=== PATIENT | female | born 1990 | race Caucasian/White ===

== ENCOUNTER 2020-01-07 13:54 | Outpatient (REF) | payer OTHER, SELFPAY ==
[2020-01-07 13:21] LABS: Anion Gap 6.3 mmol/L (3-11); BUN 13 mg/dL (7-18); CO2 31.7 mmol/L (21.0-32.0); Calcium 8.6 mg/dL (8.5-10.1); Calculated LDL 71 mg/dL (<100); Chloride 104 mmol/L (98-107); Cholesterol 144 mg/dL (<200); Glucose 81 mg/dL (74-106); HDL Cholesterol 46 mg/dL (40-60); Potassium 4.2 mmol/L (3.5-5.1); Sodium 142 mmol/L (136-145); Triglyceride 138 mg/dL (<150)
[2020-01-08 11:13] LABS: HIV-1/2 Ag & Ab Screen Negative (Negative)
[2020-01-08 11:42] LABS: Syphilis Serology (RPR) Negative (Negative)
[2020-01-08 12:55] LABS: Chlamydia Result Negative (Negative); GC Result Negative (Negative)
== END 2020-01-07 14:14 ==
LOC: NCHCN 13:54
PROVIDERS: Visit Provider Specialist/Technologist Athletic Trainer
DX: Z00.00 Encounter for general adult medical examination without abnormal findings (principal); Z13.220 Encounter for screening for lipoid disorders; Z13.228 Encounter for screening for other metabolic disorders; Z11.4 Encounter for screening for human immunodeficiency virus [HIV]; Z11.3 Encounter for screening for infections with a predominantly sexual mode of transmission
CPT/HCPCS: 80048; 80061; 87389; 87491; 87591; 86592

== ENCOUNTER 2021-04-21 13:30 | Outpatient (REF) | payer OTHER, SELFPAY ==
--- NOTE | 2021-04-21 12:15 | PAPFT_PTH ---
PATIENT: Tena Curran LOC: [facility] U#:[id number] AGE/SX: 31/F ROOM: RE04/21/[address]: Cordelia Vazquez : 1990 BED: DIS: 04/21/2021 SPEC #: [id number] RECD: 04/22/21 13:09 STATUS: DARWIN REFabian #: [id number] CR: 04/21/21 12:[address]: Cordelia Vazquez [facility]PT[facility] Cytology RECD BY: Lizeth Wise ENTERED: 04/22/21 13:09 SP TYPE: PAPFT ROBERTO DR: Unknown,Unknown Tissues: 1 - CX/ENDOCX FOR PAP SMEARS Procedures: PAP THIN PREP/[facility] Screening HPV DNA PROBE Comments: [id number]
[2021-04-21 21:54] LABS: Abs Immature Grans 0.01 10^3/uL (0.0-0.06); Absolute Basophil Count 0.04 10^3/uL (0.0-0.2); Absolute Eosinophil Count 0.09 10^3/uL (0.0-0.7); Absolute Lymphocyte Count 1.72 10^3/uL (1.2-3.4); Absolute Monocyte Count 0.43 10^3/uL (0.1-0.8); Absolute Neutrophil Count 4.68 10^3/uL (1.2-6.7); Basophils % 0.6; Eosinophils % 1.3; HCT 42.9 % (36.0-46.0); HGB 14.2 g/dL (11.2-15.7); Immature Grans % 0.1; Lymphocytes % 24.7; MCH 32.3 pg (27.0-33.0); MCHC 33.1 % (32.0-36.0); MCV 97.7 fL (80-95); MPV 11.1 fL (8.0-11.0); Monocytes % 6.2; Neutrophils % 67.1; Nucleated RBC 0 %; Platelet Count 241 10^3/uL (130-400); RBC 4.39 10^6/uL (3.93-5.22); RDW 12.5 % (11.7-14.6); WBC 6.97 10^3/uL (4.4-10.8)
[2021-04-21 21:56] LABS: ESR 1 mm/hr (0-20)
[2021-04-21 22:12] LABS: ALT 20 U/L (14-59); AST 12 U/L (15-37); Albumin 4.2 g/dL (3.4-5.0); Alkaline Phosphatase 36 U/L (46-116); Anion Gap 7.7 mmol/L (3-11); BUN 13 mg/dL (7-18); Bilirubin, Total 0.5 mg/dL (0.2-1.0); CO2 28.3 mmol/L (21.0-32.0); CREATININE 0.7 mg/dL (0.55-1.02); Calcium 9.1 mg/dL (8.5-10.1); Chloride 105 mmol/L (98-107); Glucose 84 mg/dL (74-106); Potassium 3.7 mmol/L (3.5-5.1); Sodium 141 mmol/L (136-145); TSH (W/Ref FT4) 0.42 uIU/mL (0.36-3.74); Total Protein 7.1 g/dL (6.4-8.2)
[2021-04-21 22:25] LABS: C-Reactive Protein 0.11 mg/dL (0.0-0.3)
[2021-04-21 22:28] LABS: Iron 92 ug/dL (50-170); Total Iron Binding Capacity 340 ug/dL (250-450); Transferrin Sat 27 % (15-50)
[2021-04-22 16:18] LABS: Rheumatoid Factor <8.6 IU/mL (<12.0)
[2021-04-23 09:24] LABS: Cyclic Citrullinated Peptide <2.5 U/mL (<5.0)
[2021-04-23 15:08] LABS: ANA Interpretation Negative (Negative)
[2021-04-24 01:01] LABS: Anaplasma phagocytophilum Negative (Negative); B. miyamotoi PCR Negative (Negative); Babesia divergens/MO-1 Negative (Negative); Babesia duncani Negative (Negative); Babesia microti Negative (Negative); Ehrlichia chaffeensis Negative (Negative); Ehrlichia ewingii/canis Negative (Negative); Ehrlichia muris eauclairensis Negative (Negative)
[2021-04-24 14:13] LABS: Lyme Ab w Rflx to Lyme Confirm Negative (Negative)
== END 2021-04-21 13:31 | disposition home or self-care (01) ==
LOC: NCHCN 13:30
PROVIDERS: Visit Provider Nurse Practitioner Family
DX: M25.50 Pain in unspecified joint (principal); M54.9 Dorsalgia, unspecified; G44.89 Other headache syndrome; Z00.00 Encounter for general adult medical examination without abnormal findings; F41.8 Other specified anxiety disorders; R07.9 Chest pain, unspecified; R42 Dizziness and giddiness; L29.9 Pruritus, unspecified; Z12.4 Encounter for screening for malignant neoplasm of cervix; Z01.419 Encounter for gynecological examination (general) (routine) without abnormal findings; Z11.51 Encounter for screening for human papillomavirus (HPV)
CPT/HCPCS: 80053; 85652; 86200; 87798; 88142; 83540; 83550; 84443; 85025; 86038; 86140; 86431; 86618; 87624

== ENCOUNTER 2023-08-25 10:19 | Outpatient (REF) | payer OTHER, SELFPAY ==
[2023-08-25 14:32] LABS: ESR 3 mm/hr (0-20)
[2023-08-25 14:33] LABS: Abs Immature Grans 0.01 10^3/uL (0.0-0.06); Absolute Basophil Count 0.05 10^3/uL (0.0-0.2); Absolute Eosinophil Count 0.26 10^3/uL (0.0-0.7); Absolute Lymphocyte Count 1.44 10^3/uL (1.2-3.4); Absolute Monocyte Count 0.42 10^3/uL (0.1-0.8); Absolute Neutrophil Count 3.81 10^3/uL (1.2-6.7); Basophils % 0.8; Eosinophils % 4.3; HCT 40.5 % (36.0-46.0); HGB 13.7 g/dL (11.2-15.7); Immature Grans % 0.2; MCH 32.4 pg (27.0-33.0); MCHC 33.8 % (32.0-36.0); MCV 96 fL (80-95); MPV 11.6 fL (8.0-11.0); Neutrophils % 63.7; Platelet Count 260 10^3/uL (130-400); RBC 4.23 10^6/uL (3.93-5.22); RDW 12.4 % (11.7-14.6); RDW-SD 43.4 fL; WBC 5.99 10^3/uL (4.4-10.8)
[2023-08-25 14:56] LABS: Iron 51 ug/dL (50-170); Total Iron Binding Capacity 373 ug/dL (250-450); Transferrin Sat 14 % (15-50)
[2023-08-25 15:38] LABS: ALT 19 U/L (14-59); AST 14 U/L (15-37); Albumin 4.4 g/dL (3.4-5.0); Alkaline Phosphatase 44 U/L (46-116); Anion Gap 9.5 mmol/L (3-11); BUN 12 mg/dL (7-18); Bilirubin, Total 0.2 mg/dL (0.2-1.0); CO2 24.5 mmol/L (21.0-32.0); CREATININE 0.7 mg/dL (0.55-1.02); Calcium 9.3 mg/dL (8.5-10.1); Chloride 105 mmol/L (98-107); Estimated GFR 117.77 (mL/min/1.73m2); Ferritin 19 ng/mL (8-252); Glucose 101 mg/dL (74-106); Magnesium 1.9 mg/dL (1.8-2.4); Potassium 4.2 mmol/L (3.5-5.1); Sodium 139 mmol/L (136-145); TSH (W/Ref FT4) 0.84 uIU/mL (0.36-3.74); Total Protein 7.4 g/dL (6.4-8.2); Vitamin B12 1549 pg/mL (193-986)
[2023-08-25 17:43] LABS: C-Reactive Protein 0.07 mg/dL (0.0-0.3)
[2023-08-26 15:10] LABS: ANA Interpretation Negative (Negative)
== END 2023-08-25 10:20 | disposition home or self-care (01) ==
LOC: NCHCN 10:19
PROVIDERS: Visit Provider Nurse Practitioner Family
DX: Z00.00 Encounter for general adult medical examination without abnormal findings (principal); R10.13 Epigastric pain; R07.89 Other chest pain; R53.83 Other fatigue; F41.8 Other specified anxiety disorders; J45.20 Mild intermittent asthma, uncomplicated
CPT/HCPCS: 80053; 85652; 82607; 82728; 83540; 83550; 83735; 84443; 85025; 86038; 86140